=== PATIENT | male | born 1995 | race Caucasian/White ===

== ENCOUNTER 2017-12-10 05:34 | Emergency (ER) | payer BC ==
[~2017-12-10] VITALS: Ht 193 cm; Wt 113.4 kg
[~2017-12-10 05:34] MED LIST: NAPROSYN500 MG PO; NORCO 5-325 TA1 EACH PO; PREDNISONE 10 M10 MG PO; ROBAXIN 750 MG750 M1 PO
[2017-12-10 05:59] LABS: URINE BILIRUBIN NEGATIVE (Negative); URINE BLOOD 3+ (Negative); URINE CLARITY CLEAR; URINE COLOR DARK YELLOW; URINE GLUCOSE-RANDOM NEGATIVE (Negative); URINE KETONES NEGATIVE (Negative); URINE LEUKOCYTES-REFLEX NEGATIVE (Negative); URINE NITRITE-REFLEX NEGATIVE (Negative); URINE PROTEIN TRACE (Negative); URINE SPECIFIC GRAVITY >= 1.030 (1.005-1.030); URINE UROBILINOGEN 0.2 E.U./dl (0.2-1.0)
[2017-12-10 06:17] LABS: BACTERIA-REFLEX None Seen /HPF (None Seen); CASTS None Seen /LPF (None Seen); CRYSTALS None Seen /LPF (None Seen); SQUAMOUS NONE SEEN /LPF (0-3); URINE RBC >20 Many /HPF (0-2); URINE WBC-REFLEX 0-5 Rare /HPF (0-5)
[2017-12-10 07:51] VITALS: BP 148/71
== END 2017-12-10 07:52 | disposition home or self-care (01) ==
LOC: M.ERS 05:34
PROVIDERS: Emergency Medicine
DX: Z71.1 Person with feared health complaint in whom no diagnosis is made (principal); F17.200 Nicotine dependence, unspecified, uncomplicated

== ENCOUNTER 2017-12-29 22:02 | Emergency (ER) | payer BC ==
[~2017-12-29] VITALS: Ht 193 cm; Wt 113.4 kg
[2017-12-29] MEDS ORDERED: FLEXERIL PO (22:39)
[2017-12-29] MEDS ORDERED: PREDNISONE 10 M10 MG PO (22:39)
[2017-12-29] MEDS ORDERED: VOLTAREN GEL 1100 G2 TOP (22:39)
[2017-12-29 23:02] VITALS: BP 137/72
== END 2017-12-29 23:03 | disposition home or self-care (01) ==
LOC: M.ERS 22:02
DX: M54.12 Radiculopathy, cervical region (principal); M43.6 Torticollis

== ENCOUNTER 2018-01-06 18:46 | Emergency (ER) | payer BC ==
[~2018-01-06] VITALS: Ht 193 cm; Wt 113.4 kg
[~2018-01-06 18:46] MED LIST changes: +FLEXERIL PO; +VOLTAREN GEL 1100 G2 TOP
[2018-01-06 19:45] LABS: AMP/METHAMP Negative (Negative); BARBITURATES Negative (Negative); BENZODIAZEPINES Negative (Negative); COCAINE Negative (Negative); METHADONE Negative (Negative); OPIATES Negative (Negative); PCP Negative (Negative); THC Negative (Negative)
[2018-01-06 19:48] LABS: ABSOLUTE BASOPHILS 0.1 thou/uL (0.0-0.2); ABSOLUTE EOSINOPHILS 0.1 thou/uL (0.0-0.7); ABSOLUTE LYMPHOCYTES 3.7 thou/uL (0.8-5.3); ABSOLUTE MONOCYTES 0.7 thou/uL (0.0-1.2); ABSOLUTE NEUTROPHILS 10.5 thou/uL (1.6-8.1); BASOPHILS 0.5 %; EOSINOPHILS 0.4 %; HEMATOCRIT 44.6 % (42.0-52.0); HEMOGLOBIN 15.2 gm/dL (14.0-18.0); LYMPHOCYTES 24.3 %; MCHC 34.1 g/dL (28.0-37.0); MCV 82.3 fL (80.0-100.0); MONOCYTES 4.8 %; MPV 8.5 fl. (7.2-11.1); NUCLEATED RBCS 0 /100WBC; PLATELET COUNT* 207 thou/uL (150-400); RBC 5.41 mil/uL (4.50-6.00); RDW-CV 13.6 % (10.5-14.5); WBC 15.1 thou/uL (4.0-11.0)
[2018-01-06 19:55] LABS: CALCIUM 8.7 mg/dL (8.5-10.1); CREATININE 1.1 mg/dL (0.6-1.3); POTASSIUM 3.2 mmol/L (3.5-5.1)
[2018-01-06 20:00] LABS: ALBUMIN 3.8 g/dL (3.4-5.0); TOTAL BILIRUBIN 0.6 mg/dL (<0.1-1.0); TOTAL PROTEIN 6.8 g/dL (6.4-8.2)
[2018-01-06 20:13] LABS: ACETAMINOPHEN < 2 ug/mL (10-30); ALCOHOL < 10 mg/dL (<10); SALICYLATE < 2.8 mg/dL (2.8-20.0)
[2018-01-06 22:35] VITALS: BP 111/49
== END 2018-01-06 22:36 | disposition home or self-care (01) ==
LOC: M.ERS 18:46
PROVIDERS: Emergency Medicine
DX: F32.9 Major depressive disorder, single episode, unspecified (principal); F17.200 Nicotine dependence, unspecified, uncomplicated

== ENCOUNTER 2018-12-10 00:23 | Emergency (ER) | payer OTHER ==
[~2018-12-10] VITALS: Ht 193 cm; Wt 113.4 kg
[2018-12-10] MEDS ORDERED: NAPROSYN500 MG PO (01:47)
[2018-12-10] MEDS ORDERED: NORCO 5-325 TA1 EACH PO (01:47)
[2018-12-10 02:00] VITALS: BP 150/79
== END 2018-12-10 02:02 | disposition home or self-care (01) ==
LOC: M.ERS 00:23
DX: M25.512 Pain in left shoulder (principal); F32.9 Major depressive disorder, single episode, unspecified

== ENCOUNTER 2019-03-16 04:56 | Emergency (ER) | payer BC ==
[~2019-03-16] VITALS: Ht 193 cm; Wt 122.5 kg
[2019-03-16 05:21] LABS: ABSOLUTE EOSINOPHILS 0.1 thou/uL (0.0-0.7); ABSOLUTE LYMPHOCYTES 1.6 thou/uL (0.8-5.3); ABSOLUTE MONOCYTES 0.5 thou/uL (0.0-1.2); ABSOLUTE NEUTROPHILS 6.5 thou/uL (1.6-8.1); BASOPHILS 0.5 %; EOSINOPHILS 1.2 %; HEMATOCRIT 44.8 % (42.0-52.0); HEMOGLOBIN 15.2 gm/dL (14.0-18.0); LYMPHOCYTES 18.8 %; MCH 27.7 pg (26.0-34.0); MCHC 33.9 g/dL (28.0-37.0); MCV 81.5 fL (80.0-100.0); MONOCYTES 5.3 %; MPV 9.3 fl. (7.2-11.1); NUCLEATED RBCS 0 /100WBC; PLATELET COUNT* 225 thou/uL (150-400); POLYS 74.2 %; WBC 8.7 thou/uL (4.0-11.0)
[2019-03-16] MEDS ORDERED: QUETIAPINE FUM100 MG (05:24)
[2019-03-16] MEDS ORDERED: SERTRALINE HCL50 MG PO (05:24)
[2019-03-16 05:37] LABS: URINE BILIRUBIN NEGATIVE (Negative); URINE BLOOD NEGATIVE (Negative); URINE CLARITY CLEAR; URINE COLOR DARK YELLOW; URINE GLUCOSE-RANDOM NEGATIVE (Negative); URINE KETONES NEGATIVE (Negative); URINE LEUKOCYTES-REFLEX NEGATIVE (Negative); URINE NITRITE-REFLEX NEGATIVE (Negative); URINE PROTEIN 1+ (Negative); URINE SPECIFIC GRAVITY >= 1.030 (1.005-1.030); URINE UROBILINOGEN 0.2 E.U./dl (0.2-1.0)
[2019-03-16 05:45] LABS: AMP/METHAMP Negative (Negative); BARBITURATES Negative (Negative); BENZODIAZEPINES Negative (Negative); COCAINE Negative (Negative); METHADONE Negative (Negative); OPIATES Negative (Negative); PCP Negative (Negative); THC Negative (Negative)
[2019-03-16 05:56] LABS: ACETAMINOPHEN < 2 ug/mL (10-30); ALCOHOL < 10 mg/dL (<10); CALCIUM 8.8 mg/dL (8.5-10.1); CREATININE 0.9 mg/dL (0.6-1.3); POTASSIUM 3.6 mmol/L (3.5-5.1); SALICYLATE < 2.8 mg/dL (2.8-20.0)
[2019-03-16 06:00] LABS: ALBUMIN 4.4 g/dL (3.4-5.0); TOTAL BILIRUBIN 0.7 mg/dL (<0.1-1.0); TOTAL PROTEIN 7.6 g/dL (6.4-8.2)
[2019-03-17 22:27] VITALS: BP 130/61
== END 2019-03-17 22:29 | disposition still patient (30) ==
LOC: M.ERS 04:56
PROVIDERS: Emergency Medicine
DX: R45.851 Suicidal ideations (principal); F32.9 Major depressive disorder, single episode, unspecified; Z79.899 Other long term (current) drug therapy

== ENCOUNTER 2019-04-15 15:36 | Emergency (ER) | payer BC ==
[~2019-04-15] VITALS: Ht 193 cm; Wt 120.2 kg
[~2019-04-15 15:36] MED LIST changes: +QUETIAPINE FUM100 MG; +SERTRALINE HCL50 MG PO
[2019-04-15] MEDS ORDERED: AMBIEN 5 MG TABL5 M1 PO (15:47)
[2019-04-15] MEDS ORDERED: PROZAC20 MG PO (15:47)
[2019-04-15 16:14] VITALS: BP 144/72
== END 2019-04-15 16:14 | disposition home or self-care (01) ==
LOC: M.ERS 15:36
DX: F32.9 Major depressive disorder, single episode, unspecified (principal)